=== PATIENT | female | born 1945 | race African-American/Black ===

== ENCOUNTER 2022-08-14 08:31 | Outpatient (CLI) | payer MEDICARE | END 2022-08-14 08:32 | disposition home or self-care (01) | LOC: CSHMRI 08:31 | PROVIDERS: ATTEND Orthopaedic Surgery | DX: M75.101 Unspecified rotator cuff tear or rupture of right shoulder, not specified as traumatic (principal); M75.111 Incomplete rotator cuff tear or rupture of right shoulder, not specified as traumatic; M19.011 Primary osteoarthritis, right shoulder ==